=== PATIENT | male | born 1960 | race Two or more races ===

== ENCOUNTER 2020-06-24 10:08 | Emergency (ER) | payer MEDICAID, OTHER ==
[~2020-06-24] VITALS: Ht 177.8 cm; Wt 84.4 kg
[2020-06-24 10:15] VITALS: BP 139/109
[2020-06-24] MEDS ORDERED: KETOROLAC TROMETH 60MG/2ML VIAL IM ONE (10:45)
== END 2020-06-24 11:05 | disposition home or self-care (01) ==
LOC: ER 10:08
DX: M54.16 Radiculopathy, lumbar region (principal); M51.36 Other intervertebral disc degeneration, lumbar region; G89.29 Other chronic pain
CPT/HCPCS: 96372